=== PATIENT | female | born 1940 | race American Indian/Alaskan Native ===

== ENCOUNTER 2023-07-01 09:56 | Outpatient (RCR) | payer MEDICARE, MEDICAID, SELFPAY | END 2023-07-10 23:59 | disposition home or self-care (01) | LOC: SR3 09:56 | PROVIDERS: PCP Internal Medicine; Visit Provider Internal Medicine | DX: R47.01 Aphasia (principal); I69.014 Frontal lobe and executive function deficit following nontraumatic subarachnoid hemorrhage; R26.89 Other abnormalities of gait and mobility; I61.0 Nontraumatic intracerebral hemorrhage in hemisphere, subcortical | CPT/HCPCS: 92507; 97110; 97112; 97162; 97167; 97530 ==

== ENCOUNTER 2023-07-11 06:00 | Outpatient (RCR) | payer MEDICARE, MEDICAID, SELFPAY | END 2023-08-10 23:59 | disposition home or self-care (01) | LOC: SR3 06:00 | PROVIDERS: PCP Internal Medicine; Visit Provider Internal Medicine | DX: R47.01 Aphasia (principal); I69.014 Frontal lobe and executive function deficit following nontraumatic subarachnoid hemorrhage; R26.89 Other abnormalities of gait and mobility | CPT/HCPCS: 92507; 97110; 97112; 97530 ==